=== PATIENT | male | born 1955 | race Caucasian/White ===

== ENCOUNTER 2016-04-16 09:50 | Outpatient (CLI) ==
[2012-09-19 17:29] VITALS: TEMP 97.3
[2013-10-19 15:25] VITALS: BMI 21.4
[2016-04-16 10:11] LABS: BASOPHILS % (AUTO) 0.7 % (0.0-3.0); EOSINOPHILS # (AUTO) 0.1 K/ul (0.0-0.7); EOSINOPHILS % (AUTO) 1.7 % (0.0-7.0); HEMATOCRIT 42.7 % (42.0-52.0); HEMOGLOBIN 13.9 g/dl (14.0-18.0); IMMATURE GRANULOCYTE % (AUTO) 0.5 % (0.0-5.0); LYMPHOCYTES # (AUTO) 1.2 K/uL (0.60-3.4); LYMPHOCYTES % (AUTO) 21.1 (10.0-50.0); MEAN CORPUSCULAR HEMOGLOBIN 29.3 pg (27.0-31.0); MEAN CORPUSCULAR HGB CONC 32.6 (31.8-35.4); MEAN CORPUSCULAR VOLUME 90.1 fl (80.0-94.0); MONOCYTES # (AUTO) 0.4 K/uL (0.4-2.0); MONOCYTES % (AUTO) 6.4 (0-10); NEUTROPHILS % (AUTO) 69.6; PLATELET COUNT 256 10^3/uL (140-440); RED BLOOD COUNT 4.74 10^6/ul (4.70-6.10); WHITE BLOOD COUNT 5.78 K/ul (4.2-10.2)
[2016-04-16 11:03] LABS: ALBUMIN 3.9 g/dL (3.4-5.0); ALBUMIN/GLOBULIN RATIO 1.26; ANION GAP 11.9; BILIRUBIN,TOTAL 0.53 mg/dL (0.00-1.20); BUN/CREATININE RATIO 11.11; CALCIUM 9.6 mg/dL (8.2-10.2); CHOL/HDL RATIO 3.6 (4.5-6.4); CREATININE 1.17 mg/dL (0.60-1.10); POTASSIUM 3.9 mmol/L (3.5-5.1)
== END 2016-04-16 09:51 | disposition home or self-care (01) ==
LOC: LAB 09:50
PROVIDERS: ATTEND Emergency Medicine
DX: E78.5 Hyperlipidemia, unspecified (principal); I10 Essential (primary) hypertension; Z12.5 Encounter for screening for malignant neoplasm of prostate
CPT/HCPCS: 36415; 80053; 80061; 84443; 85025

== ENCOUNTER 2016-12-14 10:05 | Outpatient (CLI) ==
[2012-09-19 17:29] VITALS: TEMP 97.3
[2013-10-19 15:25] VITALS: BMI 21.4
[2016-12-14 10:39] LABS: BASOPHILS % (AUTO) 0.5 % (0.0-3.0); EOSINOPHILS # (AUTO) 0.1 K/ul (0.0-0.7); HEMATOCRIT 39.4 % (42.0-52.0); HEMOGLOBIN 13.4 g/dl (14.0-18.0); IMMATURE GRANULOCYTE % (AUTO) 0.2 % (0.0-5.0); LYMPHOCYTES # (AUTO) 1.4 K/uL (0.60-3.4); LYMPHOCYTES % (AUTO) 23.1 (10.0-50.0); MEAN CORPUSCULAR HEMOGLOBIN 29.6 pg (27.0-31.0); MEAN CORPUSCULAR VOLUME 87.2 fl (80.0-94.0); MONOCYTES # (AUTO) 0.5 K/uL (0.4-2.0); MONOCYTES % (AUTO) 7.7 (0-10); NEUTROPHILS # (AUTO) 4.2 K/ul (2.0-6.9); NEUTROPHILS % (AUTO) 67.5; PLATELET COUNT 274 10^3/uL (140-440); RED BLOOD COUNT 4.52 10^6/ul (4.70-6.10); WHITE BLOOD COUNT 6.14 K/ul (4.2-10.2)
[2016-12-14 11:22] LABS: ALBUMIN 3.6 g/dL (3.4-5.0); ALBUMIN/GLOBULIN RATIO 1.16; ANION GAP 11.5; BILIRUBIN,TOTAL 0.71 mg/dL (0.00-1.20); BUN/CREATININE RATIO 14.54; CALCIUM 9.4 mg/dL (8.2-10.2); CHOL/HDL RATIO 2.9 (4.5-6.4); CREATININE 1.1 mg/dL (0.60-1.10); POTASSIUM 3.5 mmol/L (3.5-5.1); TOTAL PROTEIN 6.7 g/dL (6.4-8.2)
== END 2016-12-14 10:06 | disposition home or self-care (01) ==
LOC: LAB 10:05
PROVIDERS: ATTEND Internal Medicine
DX: E78.5 Hyperlipidemia, unspecified (principal); E53.8 Deficiency of other specified B group vitamins; K21.9 Gastro-esophageal reflux disease without esophagitis
CPT/HCPCS: 36415; 80053; 80061; 83036; 84443; 85025

== ENCOUNTER 2016-12-17 13:43 | Outpatient (CLI) ==
[2012-09-19 17:29] VITALS: TEMP 97.3
[2013-10-19 15:25] VITALS: BMI 21.4
== END 2016-12-17 13:44 | disposition home or self-care (01) ==
LOC: CAR 13:43
PROVIDERS: ATTEND Internal Medicine
DX: G47.30 Sleep apnea, unspecified (principal)
CPT/HCPCS: 95810

== ENCOUNTER 2017-02-17 16:13 | Emergency (ER) ==
[2017-02-17 16:19] VITALS: BP 136/93; TEMP 98.4; BMI 24.4
--- NOTE | 2017-02-17 17:03 | ED.PDOC ---
General ED Provider: Dr. SHYANN LOMBARDO Chief Complaint: Chest Wall Injury/Pain Stated Complaint: fall on left chest wall 1 day ago Time Seen by Physician: 16:19 (fall denied neck or back pain) Mode of Arrival: Walk-In Information Source: Patient Primary Care Provider: DRU IGLESIAS Referred to ED by: Other (with driller helper palpated entire spine no pain noted ) Nursing and Triage Documentation Reviewed and Agree: Yes (no point tenderness spine gerhard present) Review of Systems - Review Of Systems Constitutional: Reports: No symptoms Eyes: Reports: No symptoms Ears, Nose, Mouth, Throat: Reports: No symptoms Respiratory: Reports: No symptoms Cardiac: Reports: No symptoms GI: Reports: No symptoms : Reports: No symptoms Musculoskeletal: Reports: Other (left posterior chest wall pain no neck pain). Denies: Back pain, Joint pain, Neck pain Skin: Reports: No symptoms Neurological: Reports: No symptoms Endocrine: Reports: No symptoms Hematologic/Lymphatic: Reports: No symptoms All Other Systems: Reviewed and Negative Past Medical History - Past Medical History Previously Healthy: Yes Endocrine: Reports: None Cardiovascular: Reports: None Respiratory: Reports: None Hematological: Reports: None Gastrointestinal: Reports: GI Bleed Genitourinary: Reports: None Neuro/Psych: Reports: None Musculoskeletal: Reports: None Cancer: Reports: None - Surgical History General Surgical History: Reports: None - Family History Family History: Reports: None - Social History Smoking Status: Never smoker Hx Substance Use: No Alcohol Screening: Occasionally Physical Exam - Physical Exam Appearance: Well-appearing, No pain distress, Well-nourished Eyes: AIRAM, EOMI, Conjunctiva clear ENT: Ears normal, Nose normal, Oropharynx normal Respiratory: Airway patent, Breath sounds clear, Breath sounds equal, Respirations nonlabored Cardiovascular: RRR, Pulses normal, No rub, No murmur GI/: Soft, Nontender, No masses, Bowel sounds normal, No Organomegaly Musculoskeletal: Normal strength, ROM intact, No edema, No calf tenderness Skin: Warm, Dry, Normal color Neurological: Sensation intact, Motor intact, Reflexes intact, Cranial nerves intact, Alert, Oriented Psychiatric: Affect appropriate, Mood appropriate Critical Care Note - Critical Care Note Total Time (mins): 0 Course - Course Orders, Labs, Meds: Orders Category Date Time Status CT CHEST W/O CONTRAST Stat RADS 02/17/17 16:58 Ordered Vital Signs: Temp Pulse Resp BP Pulse Ox 02/17/17 16:14 98.4 F 79 20 136/93 H 96 Departure - Departure Time of Disposition: 18:00 Disposition: HOME SELF-CARE Discharge Problem: Chest wall pain Instructions: Chest Wall Pain (ED), Noncardiac Chest Pain (ED) Condition: Good Pt referred to PMD for follow-up: Yes Additional Instructions: Please call your Family Physician as soon as possible to schedule a follow-up appointment. Prescriptions: Hydrocodone/Acetaminophen [[place] 10-325 Tablet] 1 each PO Q8HR #12 tablet Allergies/Adverse Reactions: Allergies No Known Allergies Allergy (Verified 02/17/17 16:19) Home Medications: Ambulatory Orders Atorvastatin Calcium [Lipitor] 20 mg PO BEDTIME 09/19/12 Citalopram Hydrobromide [Celexa] 20 mg PO BEDTIME 09/19/12 Lorazepam [Ativan] 0.5 mg PO BEDTIME PRN 09/19/12 Tramadol HCl [Ultram] 50 mg PO BID 09/19/12 Tamsulosin HCl [Flomax] 0.4 mg PO DAILY 10/19/13 Diphenoxylate HCl/Atropine [Lomotil 2.5-0.025 mg Tablet] 1 each PO TID PRN #15 tablet 10/20/13 Potassium Chloride [K-Tab ER] 20 meq PO BID 5 Days tablet.er 10/20/13 Hydrocodone/Acetaminophen [[place] 10-325 Tablet] 1 each PO Q8HR #12 tablet
--- NOTE | 2017-02-17 17:34 | CT ---
EXAM: Noncontrast CT of the chest HISTORY: Fall, rib pain COMPARISON: 11/08/2014 TECHNIQUE: Noncontrast CT of the chest FINDINGS: No pneumothorax, pleural effusion or focal consolidation is identified. There is scattered areas of minimal atelectasis and/or scarring bilaterally. Right lower lobe calcified granulomas are present. Heart size is normal. No mediastinal lymphadenopathy is seen. Calcified mediastinal and right hilar lymph nodes are present. There is increased size of the hiatal hernia, and now the stomach is entirel y within the chest. No fractures are identified. There are degenerative changes of the thoracic spine. There is dextrocur vature of the thoracic spine. Bilateral renal none obstruct calculi are seen. IMPRESSION: No acute cardiopulmonary findings. Increased size of the hernia, now with an intrathoracic stomach. Evidence of prior granulomatous infection. No rib fractures identified. Bilateral renal nonobstructing calculi.
== END 2017-02-17 18:14 | disposition home or self-care (01) ==
LOC: ED 16:13
DX: R07.89 Other chest pain (principal); W19.XXXA Unspecified fall, initial encounter; R93.5 Abnormal findings on diagnostic imaging of other abdominal regions, including retroperitoneum
CPT/HCPCS: 99283

== ENCOUNTER 2017-04-01 15:54 | Inpatient (IN) ==
[2017-04-01] MEDS ORDERED: NITROSTAT SL PRN (16:21)
[2017-04-01] MEDS ORDERED: ATROPINE SULFATE PFS IVP PRN (16:21)
[2017-04-01] MEDS ORDERED: MORPHINE 4 MG/ML VIAL IVP PRN (16:21)
[2017-04-01] MEDS ORDERED: TYLENOL PO PRN ×2 (16:21→16:30)
[2017-04-01] MEDS ORDERED: VISTARIL INJ IM PRN (16:21)
[2017-04-01] MEDS ORDERED: PHENERGAN SYRUP PO PRN (16:26)
[2017-04-01] MEDS ORDERED: PHENERGAN WITH CODEINE 6.25/10 MG/5 ML PO PRN (16:51)
--- NOTE | 2017-04-01 16:51 | DI ---
EXAM: Single view of the chest HISTORY: Shortness of breath. COMPARISON: Chest x-ray 09/21/2013 FINDINGS: Cardiomediastinal silhouette is unchanged. There is a large gas distended hiatal hernia. There is no pneumothorax or pleural effusion. There is no consolidation, nodule or mass. Osseous st ructures are unremarkable. IMPRESSION: 1. A large gas containing hiatal hernia. 2. Lungs are clear.
[2017-04-01 17:08] VITALS: BMI 22.8
[2017-04-01] MEDS: ROCEPHIN 1 GM in SODIUM CHLORIDE 50 ML IV SCH (17:31)
[2017-04-01] MEDS: TORADOL IVP SCH ×2 (18:02→21:53)
[2017-04-01] MEDS: SOLU-CORTEF 250 MG IVP SCH ×2 (18:02→21:54)
[2017-04-01] MEDS: DEXTROSE 5%-1/2NS IV SOLUTION 1,000 ML IV SCH (18:06)
[2017-04-01] MEDS: XOPENEX 1.25 MG NEB SCH ×2 (18:20→22:54)
[2017-04-01] MEDS ORDERED: TAMIFLU PO SCH (21:00)
[2017-04-01] MEDS ORDERED: TAMIFLU ONE ×2 (21:40→21:43)
[2017-04-01] MEDS: CELEXA PO SCH (21:52)
[2017-04-02] MEDS: XOPENEX 1.25 MG NEB SCH ×3 (04:16→16:50)
[2017-04-02] MEDS: TORADOL IVP SCH ×3 (05:00→21:06)
[2017-04-02] MEDS ORDERED: CELEXA PO SCH (09:00)
[2017-04-02] MEDS ORDERED: FLOMAX PO SCH (09:00)
[2017-04-02] MEDS: ASPIRIN EC PO SCH ×2 (10:12→10:30)
[2017-04-02] MEDS: CARAFATE PO SCH ×3 (10:12→21:05)
[2017-04-02] MEDS: ROCEPHIN 1 GM in SODIUM CHLORIDE 50 ML IV SCH (10:13)
[2017-04-02] MEDS: PREDNISONE PO SCH (10:13)
[2017-04-02] MEDS: TAMIFLU PO SCH ×2 (10:13→21:05)
[2017-04-02] MEDS: FLOMAX PO SCH (10:13)
[2017-04-02] MEDS: PROTONIX PO SCH (10:13)
[2017-04-02] MEDS: SOLU-CORTEF 250 MG IVP SCH (10:18)
[2017-04-02] MEDS: DEXTROSE 5%-1/2NS IV SOLUTION 1,000 ML IV SCH (17:45)
[2017-04-02] MEDS: CELEXA PO SCH (21:05)
[2017-04-03] MEDS: XOPENEX 1.25 MG NEB SCH ×3 (00:02→11:18)
[2017-04-03] MEDS: CARAFATE PO SCH ×2 (06:29→10:49)
[2017-04-03] MEDS: TORADOL IVP SCH ×2 (06:30→13:23)
[2017-04-03] MEDS: PROTONIX PO SCH (06:30)
[2017-04-03] MEDS: PREDNISONE PO SCH (09:28)
[2017-04-03] MEDS: TAMIFLU PO SCH (09:28)
[2017-04-03] MEDS: ROCEPHIN 1 GM in SODIUM CHLORIDE 50 ML IV SCH (09:28)
[2017-04-03] MEDS: FLOMAX PO SCH (09:28)
[2017-04-03 10:08] VITALS: BP 102/84; TEMP 98
--- NOTE | 2017-04-05 15:41 | PN ---
DATE OF SERVICE: 04/02/17 SUBJECTIVE: The patient was hospitalized with flu type of symptoms. The patient has influenza. The patient is being treated with IV steroids, Toradol, Tamiflu and antibiotics. The patient's bronchitis is a lot better. His appetite has improved and his hydration status has improved. PHYSICAL EXAMINATION: HEENT: Head normocephalic, atraumatic. Eyes: Extraocular muscles are intact. Pupils are equal, round and reactive to light and accommodation. Ears: No lesions. Nose appeared normal. Throat: No exudate or erythema. NECK: Supple. No JVD, no carotid bruit. No lymphadenopathy or thyromegaly. LUNGS: Decreased breath sounds and less wheezing. Percussion note normal. Chest symmetrical. HEART: S1, S2, no S3. No murmurs. No cyanosis or clubbing. No ascites. Pulses: Dorsalis pedis and posterior tibial pulses +1 to +2 both sides. ABDOMEN: Soft. Nontender. Bowel sounds active. No CVA tenderness. No mass felt. EXTREMITIES: No edema. Full range of motion of all extremities, equal. NEUROLOGIC: No focal deficit. Cranial nerves II through XII are grossly intact. No headache, no double vision or headache. SKIN: Not dry. Intact. Turgor - normal. LYMPHATIC: No palpable lymph nodes/no lymphedema. MUSCULOSKELETAL: Normal joints with no swelling. Muscle tone is normal. ASSESSMENT: 1. Pneumonitis with influenza seems to be resolving 2. Hydration status has improved. PLAN: 1. Discontinue IV fluids 2. Continue antibiotics, steroids and also Carafate and Protonix. The patient was seen by the surgeon in the [place] area and was supposed to have surgery at [facility] for his entire stomach being in thorax. TIME SPENT: More than 30 minutes. Plan and coordination of the patient's care discussed in the presence of nurse. REILLY
--- NOTE | 2017-04-05 15:57 | HP ---
DATE OF SERVICE: 04/01/17 REASON FOR HOSPITALIZATION/HISTORY OF PRESENT ILLNESS: Fever, cough and congestion. Started last night, achy and nauseated. Temperature rum128. Lost 12 pounds. PAST MEDICAL HISTORY: Kidney stones Hiatal hernia COPD GERD Dyslipidemia Osteoarthritis Depression Chronic kidney disease MAX Sleep apnea. PAST SURGICAL HISTORY: Appendix REVIEW OF SYSTEMS: CONSTITUTIONAL: Fever, Fatigue. HEENT: Sinus drainage, Sore throat. RESPIRATORY: Cough, Congestion. CARDIOVASCULAR: No atypical chest pain for coronary artery disease. No angina , CHF symptoms, palpitations or shortness of breath. GASTROINTESTINAL: No melena or abdominal pain. No GERD. Nauseated GENITOURINARY: No hematuria, no prostatism, no polyuria. PIPE ROLLER: No blackout, no dizziness, Headache, no double vision. MUSCULOSKELETAL: Osteoarthritis pain, no joint swelling. ENDOCRINE: No weight loss, no weight gain. SKIN: Not dry, no rash. PSYCHIATRIC: Anxious, no depression, no suicidal thoughts, no homicidal thoughts. SOCIAL HISTORY: Marital Status: . Alcohol Usage: No. Tobacco Usage: No. FAMILY HISTORY: Father: Mother: Brother: 1 Sister:1 MEDICATIONS: Lipitor 20mg PO bedtime Ultram 50mg Po twice a day Celexa 20mg PO bedtime Flomax 0.4mg PO daily Protonix 40mg PO daily Carafate 10ml PO ACHS ALLERGIES: No known allergies. PHYSICAL EXAMINATION: V/S: Pulse 90, blood pressure 122/70, temperature 102.6 and pulse ox 96%. GENERAL APPEARANCE: Oriented times three. HEENT: Normal. Yellow drainage, pale and clammy. NECK: No JVP, no bruits. RESPIRATORY: Decreased breath sounds. CARDIOVASCULAR: S1, S2, no S3, no murmurs. No cyanosis, clubbing. No ascites. GI/ABDOMEN: Tenderness. Bowel sounds are active. EXTREMITIES: Edema, pulses +1, equal. PIPE ROLLER: Deep tendon reflexes, sensory, motor and gait all normal. RECTAL: Colonoscopy 10/10 Dr. Chahal repeat 3 years/PROSTATE: 1-17 (1.1). ASSESSMENT: 1. Flue like symptoms 2. Acute bronchitis 3. Dehydration 4. Large hiatal hernia-repair scheduled 04/20 5. Sleep apnea 6. COPD 7. GERD 8. Right Inguinal hernia repair 01/10 9. Dyslipidemia 10.Osteoarthritis 11.Depression 12.MAX 13.Vitamin B12 deficiency 14.Chronic kidney disease 15.Bilateral kidney stones. PLAN: 1. Admit regular 2. Routine Telemetry orders, skip cardiac markers 3. Rapid Flu A and B 4. Chest x-ray 5. Toradol 30mg IV now and Q 8 hours 6. CBC/ CMP daily 7. D5 1/2 normal saline @ 75cc per hour 8. Tylenol 650mg Q 4 hours PRN for fever 9. Xopenex 1.25mg NEB treatment Q 6 hours 10.Phenergan with codeine syrup one teaspoon PO Q 6 hours PRN 11.Rocephin 1 gram IV daily 12.Solu-Cortef 125mg IV Q 12 hourly and one dose now 13.Celexa 20mg Po daily 14.Flomax 0.4mg PO daily TIME SPENT: More than 70 minutes. MTDD
--- NOTE | 2017-04-07 15:46 | PN ---
DATE OF SERVICE: 04/03/17 SUBJECTIVE: 61 year old white male hospitalized with acute influenza, bronchitis, and dehydration. The patient had pleuritic pain is feeling a lot better. His condition has improved. He wants to go home. REVIEW OF SYSTEMS: CONSTITUTIONAL: No night sweats. No fatigue, malaise, lethargy. No fever or chills. HEENT: Eyes: No visual changes. No eye pain. No eye discharge. ENT: No runny nose. No epistaxis. No sinus pain. No sore throat. No odynophagia. No congestion. RESPIRATORY: No cough, no congestion. No hemoptysis. No shortness of breath. CARDIOVASCULAR: No angina symptoms. No CHF symptoms. No atypical chest pain for CAD. No palpitations. No orthopnea. GASTROINTESTINAL: No abdominal pain. No nausea or vomiting. No diarrhea or constipation. No hematemesis. No hematochezia. GENITOURINARY: No urgency. No frequency. No dysuria. No hematuria. No obstructive symptoms. No discharge. No pain. No significant abnormal bleeding. MUSCULOSKELETAL: No musculoskeletal pain; no joint swelling. NEUROLOGICAL: No headache. No neck pain. No syncope. No seizures. No dizziness. PSYCHIATRIC: Not anxious. No depression. No suicidal thoughts. No homicidal thoughts. SKIN: No rash. No lesions. No wounds. ENDOCRINE: No unexplained weight loss. No weight gain. HEMATOLOGIC/LYMPHATIC: No anemia. No purpura. No petechiae. No prolonged or excessive bleeding. No palpable lymph nodes. PHYSICAL EXAMINATION: VITAL SIGNS: Temperature 97.2, pulse 60, respiratory rate 16, blood pressure 100/50, pulse ox 95%. HEENT: Head normocephalic, atraumatic. Eyes: Extraocular muscles are intact. Pupils are equal, round and reactive to light and accommodation. Ears: No lesions. Nose appeared normal. Throat: No exudate or erythema. NECK: Supple. No JVD, no carotid bruit. No lymphadenopathy or thyromegaly. LUNGS: Decreased breath sounds, but clear. Percussion note normal. Chest symmetrical. HEART: S1, S2, no S3. No murmurs. No cyanosis or clubbing. No ascites. Pulses: Dorsalis pedis and posterior tibial pulses +1 to +2 both sides. ABDOMEN: Soft. Nontender. Bowel sounds active. No CVA tenderness. No mass felt. EXTREMITIES: No edema. Full range of motion of all extremities, equal. NEUROLOGIC: No focal deficit. Cranial nerves II through XII are grossly intact. No headache, no double vision or headache. SKIN: Not dry. Intact. Turgor - normal. LYMPHATIC: No palpable lymph nodes/no lymphedema. MUSCULOSKELETAL: Normal joints with no swelling. Muscle tone is normal. ASSESSMENT: 1. ACUTE BRONCHITIS, PNEUMONITIS AND INFLUENZA RESOLVING. 2. HYPOKALEMIA PLAN: 1. Discharge the patient home. 2. The patient has hypokalemia and we explained about it. The patient is advised to take a banana, a couple of them a day. He says that he loves bananas. He was also advised to take fruits and eat properly and rest. 3. The patient will be discharged home on Keflex and steroids. 4. He will also be given Tamiflu. CONDITION: Stable. TIME SPENT: More than 30 minutes. Plan and coordination of the patient's care discussed in the presence of nurse. REILLY
--- NOTE | 2017-04-08 09:54 | DS ---
DATE OF SERVICE: 04/03/17 FINAL DIAGNOSIS: 1. ACUTE BRONCHITIS 2. PLEURITIC PAIN 3. INFLUENZA A 4. HYPOKALEMIA 5. DYSLIPIDEMIA 6. DEPRESSION 7. BENIGN PROSTATIC HYPERTROPHY 8. GASTROESOPHAGEAL REFLUX DISEASE 9. 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 DISCHARGE INSTRUCTIONS: 1. Discharge the patient to home. 2. See me on Wednesday for follow up. 3. Rest. 4. Increase fluids and eat a lot of food with potassium like bananas and fruits. HOSPITAL COURSE: 61 year old white male seen in the office with high fever, chills, generalized aches and pains, extreme weakness. He practically wasn't able to walk. The patient was hospitalized and given IV fluids. Hydration status improved. He was given Toradol IV for aches and pains, along with steroids for pleurisy and generalized aches and pains. His condition improved. Antibiotics of IV Rocephin was given. At the time of discharge, the patient was up and about and feeling a lot better. Appetite had improved. He had no fever, no chills. He will be discharged on Keflex, Tamiflu and Prednisone. The patient is also advised to follow up with the surgeon at [place] who is going operate on his herniated stomach into the thoracic cavity. Condition at the time of discharge is stable. TIME SPENT: More than 60 minutes. REILLY
--- NOTE | 2017-04-08 09:56 | PN ---
BILLING 04/01/17 LEVEL 5 04/02/17 INTERMEDIATE 04/03/17 Jamel GROVER
== END 2017-04-03 14:20 | disposition home or self-care (01) | DRG 153 ==
LOC: MEDSURG A 15:54
PROVIDERS: ADMIT Internal Medicine; ATTEND Internal Medicine
DX: J11.1 Influenza due to unidentified influenza virus with other respiratory manifestations (principal); J20.9 Acute bronchitis, unspecified; R07.81 Pleurodynia; E86.0 Dehydration; E87.6 Hypokalemia; E78.5 Hyperlipidemia, unspecified; F32.9 Major depressive disorder, single episode, unspecified; N40.0 Benign prostatic hyperplasia without lower urinary tract symptoms; K21.9 Gastro-esophageal reflux disease without esophagitis; K44.9 Diaphragmatic hernia without obstruction or gangrene; Z79.899 Other long term (current) drug therapy
CPT/HCPCS: 36415; 80053; 81001; 85025; 87502; 93005; 93010; 94640

== ENCOUNTER 2017-04-06 17:07 | Emergency (ER) ==
[2017-04-06 17:20] VITALS: BP 137/79; TEMP 98.1; BMI 23.6
[2017-04-06] MEDS ORDERED: LIDOCAINE HCL 1% SDV ONE (18:57)
--- NOTE | 2017-04-06 19:36 | ED.PDOC ---
General ED Provider: Dr. YOLY RICKETTS Chief Complaint: Head Injury Stated Complaint: CC: Injured upper lip and scalp. HPI: This 61 y/o cauc male patient states that he was pushing a wheelbarrow full of wood up a hill and he fell causing the wheelbarrow to hit him in face and wood to fall on his head. denies loc. patient has a approximately 1-2 inch laceration below nose. In addition he has a 3 cm crescent shaped laceration to top of head and 3 cm laceration to left side of the lt forehead just inside hair at forehead. Time Seen by Physician: 18:10 Mode of Arrival: Walk-In Information Source: Patient Exam Limitations: No limitations Primary Care Provider: DRU IGLESIAS Nursing and Triage Documentation Reviewed and Agree: Yes Reviewed sepsis parameters & appropriate labs ordered?: Yes System Inflammatory Response Syndrome: Not Applicable Sepsis Protocol: For patient's 13 years and over: Temp is 96.8 and below OR 101 and greater Pulse >90 BPM Resp >20/minute Acutely Altered Mental Status Are patient's symptoms suggestive of a new infection, such as: -Pneumonia -Skin, Soft Tissue -Endocarditis -UTI -Bone, Joint Infection -Implantable Device -Acute Abdominal Infection -Wound Infection -Meningitis -Blood Stream Catheter Infection -Unknown System Inflammatory Response Syndrome: Not Applicable Trauma/Injury Complaint Exam - Head Injury Complaint/Exam Location of Pain: Reports: Scalp Mechanism of Injury: Reports: Trauma Symptoms Are: Still present Initial Severity: Moderate Current Severity: Moderate Character: Reports: Sharp Aggravating: Reports: None Alleviating: Reports: None Associated Signs and Symptoms: Denies: Confusion, Memory loss, Seizure, Epistaxis, Dental malocclusion, Neck pain, Nausea, Vomiting Loss of Consciousness: None Related History: Denies: Similar episode, Occupational injury, Anticoagulants SDH Risk Factors: Present: Male, Elderly, Recent trauma (Has horizonal lacteration upper lip below nasal structure measuring 3 cm). Absent: Seizures Review of Systems - Review Of Systems Constitutional: Reports: No symptoms, Chills Eyes: Reports: No symptoms Ears, Nose, Mouth, Throat: Reports: Mouth pain, Mouth swelling Respiratory: Reports: No symptoms Cardiac: Reports: No symptoms GI: Reports: No symptoms : Reports: No symptoms Musculoskeletal: Reports: No symptoms, Back pain Skin: Reports: Other (laceration) Neurological: Reports: No symptoms Endocrine: Reports: No symptoms Hematologic/Lymphatic: Reports: No symptoms All Other Systems: Reviewed and Negative Past Medical History - Past Medical History Previously Healthy: Yes Endocrine: Reports: None Cardiovascular: Reports: None Respiratory: Reports: None, COPD Hematological: Reports: None Gastrointestinal: Reports: GI Bleed Genitourinary: Reports: None Neuro/Psych: Reports: None Musculoskeletal: Reports: None Cancer: Reports: None - Surgical History General Surgical History: Reports: None - Family History Family History: Reports: None - Social History Smoking Status: Never smoker Hx Substance Use: No Alcohol Screening: Occasionally - Immunizations Tetanus Shot up to Date: No (thinks more than 5 years.) Physical Exam - Physical Exam Appearance: Ill-appearing Ill-appearing: None Pain Distress: Moderate Eyes: AIRAM, EOMI, Conjunctiva clear ENT: Ears normal, Nose normal, Oropharynx normal Neck: Supple Respiratory: Airway patent, Breath sounds clear Cardiovascular: RRR, Pulses normal, No rub, No murmur GI/: Soft, Nontender, No masses Musculoskeletal: Normal strength, ROM intact, No edema Skin: Warm, Dry Neurological: Sensation intact, Motor intact, Alert, Oriented Psychiatric: Affect appropriate, Mood appropriate Procedures - Laceration/Wound Repair Laceration Wound Description: Linear Wound Length (cm): 6 cm Wound Explored: Clean Wound Irrigated: Yes Wound Prep: Saline, Hibiclens, Betadine Wound Repaired With: Charity Number of Morton: 7 Layer Closure?: No Sterile Dressing Applied?: Yes Lip Wound Explored: Clean Wound Irrigated: Yes Wound Prep: Saline, Hibiclens, Betadine Anesthesia: Lidocaine Wound Debrided: Minimal Wound Repaired With: Sutures Suture Size and Type: 4-0 Nylon Number of Sutures: 6 Layer Closure?: No Sterile Dressing Applied?: Yes Critical Care Note - Critical Care Note Total Time (mins): 0 Course - Course Orders, Labs, Meds: Orders Category Date Time Status Acetaminophen [Tylenol Liquid 650 mg/20.3 ml] MEDS 04/06/17 20:14 Stat 650 mg PO ONCE STA Amoxicillin/Potassium Clav [Augmentin 875-125 mg Tab] MEDS 04/06/17 20:14 Stat 1 tab PO ONCE STA Lidocaine HCl/Pf [Lidocaine HCl 1% Sdv] MEDS 04/06/17 18:57 Discontinued 10 ml .ROUTE .STK-MED ONE Tetanus, Diphtheria Tox,Adult [Tetanus Diphtheria MEDS 04/06/17 20:13 Once Toxoids] 0.5 ml IM .ONCE ONE Medications Discontinued Medications Generic Name Dose Route Start Last Admin Trade Name Manjula PRN Reason Stop Dose Admin Acetaminophen 650 mg 04/06/17 20:14 Tylenol Liquid 650 Mg/20.3 Ml PO 04/06/17 20:15 ONCE STA Amoxicillin/Clavulanate Potassium 1 tab 04/06/17 20:14 Augmentin 875-125 Mg Tab PO 04/06/17 20:15 ONCE STA Tetanus/Diphtheria Toxoids 0.5 ml 04/06/17 20:13 Tetanus Diphtheria Toxoids IM 04/06/17 20:14 .ONCE ONE Vital Signs: Temp Pulse Resp BP Pulse Ox 04/06/17 17:09 98.1 F 83 20 137/79 95 Departure - Departure Time of Disposition: 20:30 Disposition: HOME SELF-CARE Discharge Problem: Closed head injury, Laceration Instructions: Care For Your Stitches (ED) Condition: Good Pt referred to PMD for follow-up: Yes (Follow up 1 week for suture removal at Dr Ivan Office or return to ER) Prescriptions: Amoxicillin/Potassium Clav [Augmentin 875-125 Tablet] 1 each PO BID #14 tablet Allergies/Adverse Reactions: Allergies No Known Allergies Allergy (Verified 04/06/17 17:14) Home Medications: Ambulatory Orders Atorvastatin Calcium [Lipitor] 20 mg PO BEDTIME 09/19/12 Citalopram Hydrobromide [Celexa] 20 mg PO BEDTIME 09/19/12 Tramadol HCl [Ultram] 50 mg PO BID 09/19/12 Tamsulosin HCl [Flomax] 0.4 mg PO DAILY 10/19/13 Pantoprazole Sodium [Protonix] 40 mg PO DAILY 04/01/17 Sucralfate Susp [Carafate] 10 ml PO ACHS 04/01/17 Prednisone 10 mg PO BIDWM 5 Days #10 tablet 04/03/17 Amoxicillin/Potassium Clav [Augmentin 875-125 Tablet] 1 each PO BID #14 tablet 04/06/17
[2017-04-06] MEDS ORDERED: TETANUS DIPHTHERIA TOXOIDS IM ONE (20:13)
[2017-04-06] MEDS ORDERED: AUGMENTIN 875-125 MG TAB PO STA (20:14)
[2017-04-06] MEDS ORDERED: TYLENOL LIQUID 650 MG/20.3 ML PO STA (20:14)
[2017-04-06] MEDS ORDERED: LIDOCAINE HCL 1% SDV SUBCUT STA (20:53)
== END 2017-04-06 20:55 | disposition home or self-care (01) ==
LOC: ED 17:07
DX: S01.511A Laceration without foreign body of lip, initial encounter (principal); S01.01XA Laceration without foreign body of scalp, initial encounter; W19.XXXA Unspecified fall, initial encounter; W22.8XXA Striking against or struck by other objects, initial encounter
CPT/HCPCS: 90714; 99283

== ENCOUNTER 2017-05-18 15:34 | Outpatient (CLI) ==
[2012-09-19 17:29] VITALS: TEMP 97.3
== END 2017-05-18 15:35 | disposition home or self-care (01) ==
LOC: LAB 15:34
PROVIDERS: ATTEND Internal Medicine
DX: E78.5 Hyperlipidemia, unspecified (principal); E53.8 Deficiency of other specified B group vitamins; K21.9 Gastro-esophageal reflux disease without esophagitis; Z12.5 Encounter for screening for malignant neoplasm of prostate
CPT/HCPCS: 36415; 80053; 80061; 82607; 83036; 84443; 85025

== ENCOUNTER 2017-11-01 13:09 | Outpatient (CLI) ==
[2012-09-19 17:29] VITALS: TEMP 97.3
== END 2017-11-01 13:10 | disposition home or self-care (01) ==
LOC: LAB 13:09
PROVIDERS: ATTEND Internal Medicine
DX: E78.5 Hyperlipidemia, unspecified (principal); N18.9 Chronic kidney disease, unspecified; E53.8 Deficiency of other specified B group vitamins; G47.30 Sleep apnea, unspecified
CPT/HCPCS: 36415; 80053; 80061; 83036; 84443; 85025

== ENCOUNTER 2018-01-31 10:12 | Outpatient (CLI) ==
[2012-09-19 17:29] VITALS: TEMP 97.3
== END 2018-01-31 10:13 | disposition home or self-care (01) ==
LOC: LAB 10:12
PROVIDERS: ATTEND Internal Medicine
DX: E78.5 Hyperlipidemia, unspecified (principal); D64.9 Anemia, unspecified; J44.9 Chronic obstructive pulmonary disease, unspecified
CPT/HCPCS: 36415; 80053; 80061; 83036; 84443; 85025

== ENCOUNTER 2018-04-04 10:17 | Outpatient (CLI) ==
[2012-09-19 17:29] VITALS: TEMP 97.3
--- NOTE | 2018-04-04 10:51 | DI ---
EXAM: Four views of the cervical spine. History: Cervical neck pain. Findings: No acute fracture or subluxation of the cervical spine. No prevertebral soft tissue swell ing. Severe disc space narrowing at C3-4. Moderate to severe disc space narrowing at C5-6. Moderat e disc space narrowing at C4-5 and C6-7. There is endplate sclerosis and osteophyte formation. Pred ental space is not widened Impression: 1. No acute osseous abnormality of the cervical spine. 2. Degenerative changes
--- NOTE | 2018-04-04 10:51 | DI ---
EXAM: Three views of the thoracic spine. History: Thoracic back pain. Findings: Mild dextroscoliosis. Calcified granulomas seen within the thorax. No acute fracture or subluxation of the thoracic spine. Mild to moderate multilevel disc space narrowing with endplate sc lerosis and a few prominent osteophytes. Impression: 1. No acute osseous abnormality of the thoracic spine. 2. Mild to moderate degenerative disc disease
--- NOTE | 2018-04-04 10:52 | DI ---
EXAM: Three views of the lumbar spine. History: Lower back pain. Comparison: Lumbar spine MRI 02/04/2012 Findings: No acute fracture or subluxation of the lumbar spine. Mild to moderate multilevel disc sp sathish narrowing with endplate sclerosis and a few small osteophytes. Impression: 1. No acute osseous abnormality of the lumbar spine. 2. Mild to moderate degenerative disc disease
== END 2018-04-04 10:18 | disposition home or self-care (01) ==
LOC: RAD 10:17
PROVIDERS: ATTEND Internal Medicine
DX: M54.9 Dorsalgia, unspecified (principal)

== ENCOUNTER 2018-05-07 10:09 | Emergency (ER) ==
[2018-05-07 10:15] VITALS: BP 137/92; TEMP 97.9; BMI 24.9
--- NOTE | 2018-05-07 11:10 | ED.PDOC ---
General ED Provider: Dr. YOLY RICKETTS Chief Complaint: Finger Pain/Injury Stated Complaint: Injury Lt Middle finger. Was cutting wood when a piece of firewood fell on his left third finger. Has swelling and pain. Time Seen by Physician: 10:55 Mode of Arrival: Walk-In Information Source: Patient Exam Limitations: No limitations Primary Care Provider: DRU IGLESIAS Nursing and Triage Documentation Reviewed and Agree: Yes Does patient meet sepsis criteria?: No If yes, has appropriate treatment been initiated?: No System Inflammatory Response Syndrome: Not Applicable Sepsis Protocol: For patient's 13 years and over: Temp is 96.8 and below OR 101 and greater Pulse >90 BPM Resp >20/minute Acutely Altered Mental Status Are patient's symptoms suggestive of a new infection, such as: -Pneumonia -Skin, Soft Tissue -Endocarditis -UTI -Bone, Joint Infection -Implantable Device -Acute Abdominal Infection -Wound Infection -Meningitis -Blood Stream Catheter Infection -Unknown Musculoskeletal Complaint Exam - Hand/Wrist Complaint/Exam Location of Pain: Reports: Left, Digit #3 Mechanism of Injury: Reports: Trauma Onset/Duration: 2 hrs Symptoms Are: Still present Onset of Pain: Reports: Immediate Initial Severity: Moderate Current Severity: Moderate Location: Reports: Discrete Character: Reports: Aching, Throbbing Alleviating: Reports: Rest Aggravating: Reports: Movement Associated Signs and Symptoms: Reports: Swelling, Bruising Dominant Hand: Right Related Surgical History: Reports: None Hand/Wrist Findings: Present: Swelling, Ecchymosis Tenderness: Present: Phalanx. Absent: Radius, Ulna Compartment Syndrome Risk Factors: Present: Pain Differential Diagnoses: Carpal Tunnel Syndrome, Contusion, Closed Fracture, Strain Review of Systems - Review Of Systems Constitutional: Reports: No symptoms Eyes: Reports: No symptoms Ears, Nose, Mouth, Throat: Reports: No symptoms Respiratory: Reports: No symptoms Cardiac: Reports: No symptoms GI: Reports: No symptoms : Reports: No symptoms Musculoskeletal: Reports: No symptoms Skin: Reports: No symptoms Neurological: Reports: No symptoms Endocrine: Reports: No symptoms Hematologic/Lymphatic: Reports: No symptoms All Other Systems: Reviewed and Negative Past Medical History - Past Medical History Previously Healthy: Yes Endocrine: Reports: None Cardiovascular: Reports: None Respiratory: Reports: None, COPD Hematological: Reports: None Gastrointestinal: Reports: GI Bleed Genitourinary: Reports: None Neuro/Psych: Reports: None Musculoskeletal: Reports: None Cancer: Reports: None - Surgical History General Surgical History: Reports: None - Family History Family History: Reports: None - Social History Smoking Status: Never smoker Hx Substance Use: No Alcohol Screening: Occasionally Physical Exam - Physical Exam Appearance: Well-appearing, No pain distress, Well-nourished Eyes: AIRAM, EOMI, Conjunctiva clear ENT: Ears normal, Nose normal, Oropharynx normal Respiratory: Airway patent, Breath sounds clear, Breath sounds equal, Respirations nonlabored Cardiovascular: RRR, Pulses normal, No rub, No murmur GI/: Soft, Nontender, No masses, Bowel sounds normal, No Organomegaly Musculoskeletal: Normal strength, ROM intact (lt 3rd PIP joint painful to move, is edematous/reduced flexion ), No edema, No calf tenderness Skin: Warm, Dry, Normal color Neurological: Sensation intact, Motor intact, Reflexes intact, Cranial nerves intact, Alert, Oriented Psychiatric: Affect appropriate, Mood appropriate Critical Care Note - Critical Care Note Total Time (mins): 0 Course - Course Orders, Labs, Meds: Orders Category Date Time Status Ketorolac Tromethamine [Toradol] MEDS 05/07/18 11:11 Discontinued 10 mg PO ONCE STA FINGER(S), LEFT MIN 2V Stat RADS 05/07/18 11:09 Completed Medications Discontinued Medications Generic Name Dose Route Start Last Admin Trade Name Manjula PRN Reason Stop Dose Admin Ketorolac Tromethamine 10 mg 05/07/18 11:11 05/07/18 11:25 Toradol PO 05/07/18 11:12 10 mg ONCE STA Administration Vital Signs: Temp Pulse Resp BP Pulse Ox 05/07/18 10:11 97.9 F 76 20 137/92 H 96 Departure - Departure Time of Disposition: 12:00 Disposition: HOME SELF-CARE Discharge Problem: Contusion of finger of left hand Instructions: Osteoarthritis (ED), Contusion in Adults (ED), Finger Sprain (ED) Condition: Good Pt referred to PMD for follow-up: Yes IPMP verified?: No Additional Instructions: Splint to injured finger Ice and elevate Ibuprofen 600 mg 3-4 times daily for pain See PCP this week Allergies/Adverse Reactions: Allergies No Known Allergies Allergy (Verified 05/07/18 10:15) Home Medications: Ambulatory Orders Atorvastatin Calcium [Lipitor] 20 mg PO BEDTIME 09/19/12 Citalopram Hydrobromide [Celexa] 20 mg PO BEDTIME 09/19/12 Tramadol HCl [Ultram] 50 mg PO BID 09/19/12 Tamsulosin HCl [Flomax] 0.4 mg PO DAILY 10/19/13 Pantoprazole Sodium [Protonix] 40 mg PO DAILY 04/01/17 Sucralfate Susp [Carafate] 10 ml PO ACHS 04/01/17 Disposition Discussed With: Patient
[2018-05-07] MEDS ORDERED: TORADOL PO STA (11:11)
--- NOTE | 2018-05-07 11:29 | DI ---
EXAM: Fingers left three views HISTORY: Injury, pain FINDINGS / IMPRESSION: No comparison. Bones are demineralized. There is moderate to severe osteoar thritis especially involving the distal interphalangeal joints. There is a tiny 2 mm osseous density at the dorsal aspect of the third proximal interphalangeal joint which could represent a tiny avulsi on or chip fracture. A chronic bony spur which has become discontinuous could appear similar. Corre late clinically.
== END 2018-05-07 12:20 | disposition home or self-care (01) ==
LOC: ED 10:09
DX: S60.032A Contusion of left middle finger without damage to nail, initial encounter (principal); W22.8XXA Striking against or struck by other objects, initial encounter
CPT/HCPCS: 99283

== ENCOUNTER 2018-06-15 11:10 | Outpatient (CLI) ==
[2012-09-19 17:29] VITALS: TEMP 97.3
--- NOTE | 2018-06-15 11:56 | US ---
EXAM: Scrotal ultrasound. History: Right testicular pain and swelling, palpable abnormality of the right testicle. Technique: Multiple sonographic images through the scrotum were obtained. Color duplex Doppler was used to interrogate vascular flow. Findings: No blood flow is seen within the right testicle and demonstrates heterogeneous echotexture. 2.2 cm x 0.9 cm hypodense mass within the central right testicle versus area of necrosis or infection. Along the lateral aspect of the right testicle. There is a 1.1 cm solid nodule. The right epididymis colleen ears normal. The left testicle is normal in size. Blood flow was documented within the left testicle. No left in tratesticular masses. The left epididymis is not hyperemic. No varicoceles and no hydroceles. Impression: 1. Right testicular torsion. 2. Hyperdense mass within the central right testicle probably represents an area of necrosis. Solid testicular mass is not excluded. 3. 1.1 cm nonspecific solid mass within the soft tissues lateral to the right testicle is of unknown etiology. Critical results communicated to Sarah BOYD at 11:51 a.m. 06/15/2018
== END 2018-06-15 11:11 | disposition home or self-care (01) ==
LOC: RAD 11:10
PROVIDERS: ATTEND Internal Medicine
DX: N50.82 Scrotal pain (principal); N50.89 Other specified disorders of the male genital organs; E78.5 Hyperlipidemia, unspecified; R30.0 Dysuria; K21.9 Gastro-esophageal reflux disease without esophagitis
CPT/HCPCS: 36415; 80053; 80061; 81001; 84443; 85025

== ENCOUNTER 2018-09-02 09:57 | Outpatient (CLI) ==
[2012-09-19 17:29] VITALS: TEMP 97.3
--- NOTE | 2018-09-02 10:36 | DI ---
EXAM: Two views of the chest. History: Short of breath Comparison: Chest radiograph 04/01/2017 Findings: Heart size is normal. No focal consolidation. No appreciable pleural fluid and no pneumo thorax. No acute osseous abnormalities. Impression: No acute cardiopulmonary process
== END 2018-09-02 09:58 | disposition home or self-care (01) ==
LOC: RAD 09:57
PROVIDERS: ATTEND Internal Medicine
DX: R06.02 Shortness of breath (principal)

== ENCOUNTER 2018-09-05 06:33 | Outpatient (CLI) ==
[2012-09-19 17:29] VITALS: TEMP 97.3
--- NOTE | 2018-09-05 10:15 | ECHO2D ---
Date of Exam: 09/05/18 Ordering Physician: DR. DRU IGLESIAS Room #: OP Reason for Echo: SOB, DYSLIPIDEMIA, FAMILY HISTORY OF HEART DISEASE M-Mode Normal Adult Results LV Dimensions Normal Adult Results AoV Opening excursions >1.6 >1.6 LVEDD-base- 3.5-5.8 5.0 Ao root dimensions 2.0-3.7 3.3 LVESD-base- 3.1-4.6 L. Atrium dimensions 1.9-3.8 4.1 Post. Wall thickness 0.8-1.1 1.1 IV septum (thickness) 0.7-1.2 1.2 Post. Wall excursion 0.72-1.3 NORMAL Septal motion NORMAL Systolic motion R. Ventricular cavity 1.5-2.0 NORMAL LVEF 60% 50% Paradoxical septal wall motion NORMAL 2-D : 2-D M Mode Echocardiogram was performed using apical four chamber and left parasternal long and short axis views. Mitral, tricuspid and aortic valves appear to be normal. Contractility of the left ventricle seems to be normal, so is the cavity size. Mild Left atrial cavity size. Aortic root appears to be normal. There is no pericardial effusion. There is no thrombus noted in the left ventricular or left aortic cavity. No mitral valve prolapse noted. M-MODE: MV: NORMAL AV: NORMAL TV: NORMAL PV: CHAMBER SIZE: LEFT VENTRICLE CAVITY ENLARGEMENT WALL MOTION: NORMAL PERICARDIUM: NORMAL INTERPRETATION: 1. BORDERLINE LEFT VENTRICULAR HYPERTROPHY 2. ENLARGED LEFT ATRIAL CAVITY 3. NORMAL VALVES 4. NORMAL LEFT VENTRICULAR CONTRACTILITY MTDD
== END 2018-09-05 06:34 | disposition home or self-care (01) ==
LOC: CAR 06:33
PROVIDERS: ATTEND Internal Medicine
DX: R06.02 Shortness of breath (principal); E78.5 Hyperlipidemia, unspecified; Z82.49 Family history of ischemic heart disease and other diseases of the circulatory system
CPT/HCPCS: 93005; 93010

== ENCOUNTER 2018-09-06 06:44 | Outpatient (CLI) ==
[2012-09-19 17:29] VITALS: TEMP 97.3
--- NOTE | 2018-09-06 09:20 | ECHOSTRESS ---
Date of Exam: 09/06/18 Ordering Physician: DR. DRU IGLESIAS Reason for Echo: SOB, DYSLIPIDEMIA, FAMILY HISTORY CAD, STRESS TEST --NO ISCHEMIA M-Mode Normal Adult Results LV Dimensions Normal Adult Results AoV Opening excursions >1.6 LVEDD-base- 3.5-5.8 Ao root dimensions 2.0-3.7 LVESD-base- 3.1-4.6 L. Atrium dimensions 1.9-3.8 Post. Wall thickness 0.8-1.1 IV septum (thickness) 0.7-1.2 Post. Wall excursion 0.72-1.3 Septal motion Systolic motion R. Ventricular cavity 1.5-2.0 LVEF 60% Paradoxical septal wall motion 2-D: NORMAL LEFT VENTRICULAR CONTRACTILITY--RESTING AND POST EXERCISE M-MODE: MV: AV: TV: PV: CHAMBER SIZE: WALL MOTION: NORMAL LEFT VENTRICULAR CONTRACTILITY--RESTING AND POST EXERCISE PERICARDIUM: INTERPRETATION: 1. NORMAL LEFT VENTRICULAR CONTRACTILITY--RESTING AND POST EXERCISE MTDD
--- NOTE | 2018-09-06 09:28 | STRESSECHO ---
Date of Test: 09/06/18 Ordering Physician: DR. DRU IGLESIAS Occupation: DISABLED Reason for Exam: SOB, DYSLIPIDEMIA Smoking History: NONE Height: 66" Weight: 150 LBS Current Medications: TAMSULOSIN, PANTOPRAZOLE, TRAMADOL, ATORVASTATIN, CITALOPRAM, CARAFATE Resting EKG : SINUS RHYTHM/ NO ACUTE CHANGES Target Heart Rate: 136/160 S-T SEGMENT STAGE MPH/GRADE HEART RATE BPM BLOOD PRESSURE MMHG RHYTHM +/- ELEVATION DEPRESSION SYMPTOMS AT REST 56 BPM 110/70 MMHG SR X NONE 1 1.7/10% 110 BPM 120/70 MMHG SR X NONE 2 2.5/12% 140 BPM 160/90 MMHG SR X NONE 3 3.4/14% 4 4.2/16% 5 5.0/18% Immediately After 150 BPM 160/90 MMHG SR X SHORT OF AIR Minutes Post Exercise 1:00 94 BPM 150/80 MMHG SR X NONE Minutes Post Exercise 5:00 74 BPM 122/70 MMHG SR X NONE DURATION OF EXERCISE: 6:21 MAXIMUM HEART RATE REACHED: 150 BPM REASON FOR TERMINATION: SHORT OF AIR 97% OXYGEN SATURATION WITH EXERCISE ON ROOM AIR METS 8.0 INTERPRETATION: 1. NO EVIDENCE OF ISCHEMIA BY ST-T WAVE 2. NO CHEST PAIN OR DISCOMFORT 3. NO ARRHYTHMIAS 4. BLOOD PRESSURE RESPONSE NORMAL NORMAL LEFT VENTRICULAR CONTRACTILITY--RESTING AND POST EXERCISE MTDD
== END 2018-09-06 06:45 | disposition home or self-care (01) ==
LOC: CAR 06:44
PROVIDERS: ATTEND Internal Medicine
DX: R06.02 Shortness of breath (principal); E78.5 Hyperlipidemia, unspecified; Z86.79 Personal history of other diseases of the circulatory system

== ENCOUNTER 2018-09-12 09:35 | Outpatient (CLI) ==
[2012-09-19 17:29] VITALS: TEMP 97.3
== END 2018-09-12 09:36 | disposition home or self-care (01) ==
LOC: LAB 09:35
PROVIDERS: ATTEND Internal Medicine
DX: E78.5 Hyperlipidemia, unspecified (principal); K21.9 Gastro-esophageal reflux disease without esophagitis; N18.9 Chronic kidney disease, unspecified; Z12.5 Encounter for screening for malignant neoplasm of prostate
CPT/HCPCS: 36415; 80053; 80061; 82607; 83036; 84439; 84443; 85025